=== PATIENT | male | born 1935 ===

== ENCOUNTER 2016-11-26 08:12 | Day surgery (SDC) | payer MEDICARE ==
--- NOTE | 2016-11-24 21:29 | HP ---
PREOPERATIVE HISTORY AND PHYSICAL: DATE OF ADMISSION/OPERATION: 11/26/16 CHIEF COMPLAINT: Numbness and tingling in the right hand. HISTORY OF PRESENT ILLNESS: Linus is an 81-year-old man, who has a history of right carpal tunnel release done several years ago. He has recurrent symptoms. He presents for redo right carpal tunnel release. PAST MEDICAL HISTORY: Significant for hypertension, COPD, asthma, arthritis, and kidney stones. PAST SURGICAL HISTORY: ORIF of the leg fracture, bilateral carpal tunnel release. MEDICATIONS: 1. Aspirin enteric coated low dose 81 mg daily. 2. Breo Ellipta 100/25 mcg 1 puff inhaled daily. 3. Diltiazem CD 120 mg p.o. daily. 4. Ipratropium bromide/albuterol sulfate 0.5-2.5 mg/3 mL, use 3 times a day as needed for asthma. 5. Montelukast sodium. 6. ProAir HFA 108 mcg 2 puffs by mouth every 4 hours as needed. 7. Spiriva HandiHaler 18 mcg 1 inhalation daily. 8. Valsartan/hydrochlorothiazide 80/12.5 p.o. daily. DRUG ALLERGIES: To PENICILLIN. FAMILY HISTORY: Diabetes, hypertension, and stroke. SOCIAL HISTORY: Lives with his . He is a retired jackson. He quit smoking 15 years ago. Has about 5 alcoholic beverages per week. REVIEW OF SYSTEMS: Positive for history of kidney stones, occasional weakness, and fatigue, otherwise negative for cephalic, cardiovascular, respiratory, gastrointestinal, genitourinary, other musculoskeletal, skin, neurologic, endocrine, and hematologic symptoms. Also complains of hearing changes, heart palpitations, cough, shortness of breath, and chest pain. PHYSICAL EXAMINATION HEENT: Exam is unremarkable. His eye movements are concentric. NECK: He has good range of motion of his neck without pain. No masses are palpated. LUNGS: His lungs are clear to auscultation, good inspiratory effort, no wheezing. CARDIAC: Regular rate and rhythm with an occasional ectopic beat and systolic murmur. ABDOMEN: Soft and nontender. EXTREMITIES: He has palpable pulses and no peripheral edema. He has positive Phalen's test and Tinel's signs and thenar wasting and decreased sensation to his median nerve distribution. NEUROLOGICAL: He is alert and oriented without focal deficits. IMPRESSION: Right carpal tunnel syndrome. PLAN: For a right carpal tunnel release which is a redo. The surgical procedure, risks, and benefits were explained to the patient today, and he agrees to proceed. We will see him back at followup for reevaluation in 10 to 14 days postop. [id number]/[facility] #: [id number] MTDZa
[~2016-11-26 08:12] MED LIST: Buffered Lidocaine 0.9% SYRIN* 5 ML/SYR SYRINGE INTRADERM ONE; Famotidine IV* 10 MG/ML 2 ML (20 mg) IV ONE; Famotidine IV* 10 MG/ML 2 ML (20 mg) ONE
[2016-11-26] MEDS ORDERED: fentaNYL* 50 MCG/ML 2 ML VIAL (100 MCG VIAL) ONE (08:27)
[2016-11-26] MEDS ORDERED: Ondansetron INJ* 2 MG/ML VIAL ONE (08:27)
[2016-11-26] MEDS ORDERED: Ketorolac INJ* 30 MG/ML 1 ML VIAL ONE (08:27)
[2016-11-26] MEDS ORDERED: Lidocaine 2% PF * 5 ML VIAL ONE (08:27)
[2016-11-26] MEDS ORDERED: Midazolam* 1 MG/ML 2 ML VIAL (2 MG) ONE (08:27)
[2016-11-26] MEDS ORDERED: Propofol* 10 MG/ML 20 ML BTL IV PUSH ONE (08:27)
[2016-11-26] MEDS ORDERED: Acetaminophen TAB* 325 MG PO PRN (08:37)
[2016-11-26] MEDS ORDERED: DiMENhydriNATE IV* 50 MG/ML VIAL IV PUSH PRN (08:37)
[2016-11-26] MEDS ORDERED: Lidocaine 1% INJ* 10 MG/ML 30 ML SDV ONE (09:04)
[2016-11-26 10:03] VITALS: BP 155/81
--- NOTE | 2016-11-27 06:15 | OP ---
CC: Dr. Tobin OPERATIVE REPORT: DATE OF OPERATION: 11/26/16 - LB DATE OF : 31 SURGEON: Rachel Tobin MD EMERGENCY OPERATOR: HAROON Reardon ANESTHESIOLOGIST: Fang Cornelius MD ANESTHESIA: Local MAC. PRE-OP DIAGNOSIS: Recurrent carpal tunnel syndrome on the right. POST-OP DIAGNOSIS: Recurrent carpal tunnel syndrome on the right. OPERATIVE PROCEDURE: Redo right carpal tunnel release. INDICATIONS: Linus is an 81-year-old man with a history of carpal tunnel release. He did very well after that surgery, but recently has developed recurrent symptoms of numbness and tingling and pain in the right hand. He presents for redo carpal tunnel release. ESTIMATED BLOOD LOSS: Zero. TOURNIQUET TIME: About 10 minutes. DESCRIPTION OF PROCEDURE: The patient was brought to the operating room and was given a sedation anesthetic and a local infiltration of 10 cc of 1% plain lidocaine in the palm of his right hand. The skin of his right hand and forearm was prepped and draped in the usual sterile fashion. The hand and forearm were exsanguinated and tourniquet elevated to 250 mmHg. The previous scar was incised and then the incision was extended a little bit proximally in zigzag fashion across the wrist creases. We dissected sharply through the scar tissue of the transverse carpal ligament down to the median nerve. The nerve was released all the way into the forearm and into the mid aspect of the palm. That appeared to be in good condition. There was not abundant tenosynovitis surrounding the tendons, but the nerve was somewhat scarred to the undersurface of the transverse carpal ligament. It was carefully freed up and then the wound was irrigated and the skin edges were reapproximated with 4-0 nylon suture. The wound was dressed with Xeroform, 4x4, Webril, and an Hardeep wrap. The patient tolerated the procedure well and was brought to the recovery room in good condition. [id number]/[facility] #: [id number] MTDD
== END 2016-11-26 10:04 | disposition home or self-care (01) ==
LOC: OREAST 08:12
PROVIDERS: ATTEND Orthopaedic Surgery
DX: G56.01 Carpal tunnel syndrome, right upper limb (principal); I10 Essential (primary) hypertension; J44.9 Chronic obstructive pulmonary disease, unspecified; Z79.82 Long term (current) use of aspirin; Z88.0 Allergy status to penicillin; Z87.891 Personal history of nicotine dependence
CPT/HCPCS: J1885; J2001; J2250; J2405; J2704; J3010